=== PATIENT | female | born 1965 | race Caucasian/White ===

== ENCOUNTER 2021-02-25 18:56 | Observation (INO) | payer SELFPAY ==
[~2021-02-25] VITALS: Ht 149 cm; Wt 63.0 kg
[2021-02-25 19:16] LABS: BASOPHILS # (AUTO) 0.1 10^3/uL (0.0-0.1); BASOPHILS % (AUTO) 1 % (0-10); EOSINOPHILS # (AUTO) 0.2 10^3/uL (0.0-0.3); EOSINOPHILS % (AUTO) 1 % (0-10); HEMATOCRIT 43 % (35-52); HEMOGLOBIN 14.1 g/dL (11.5-16.0); LYMPHOCYTES # (AUTO) 1.8 10^3/uL (1.0-4.0); LYMPHOCYTES % (AUTO) 14 % (12-44); MEAN CORPUSCULAR HEMOGLOBIN 30 pg (25-34); MEAN CORPUSCULAR HGB CONC 33 g/dL (32-36); MEAN CORPUSCULAR VOLUME 89 fL (80-99); MEAN PLATELET VOLUME 8.6 fL (9.0-12.2); MONOCYTES # (AUTO) 0.6 10^3/uL (0.0-1.0); MONOCYTES % (AUTO) 4 % (0-12); NEUTROPHILS # (AUTO) 10.1 10^3/uL (1.8-7.8); NEUTROPHILS % (AUTO) 79 % (42-75); PLATELET COUNT 423 10^3/uL (130-400); WHITE BLOOD COUNT 12.7 10^3/uL (4.3-11.0)
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
[2021-02-25] MEDS ORDERED: LACTATED RINGERS 1,000 ML IV ONE (19:45)
[2021-02-25 19:55] LABS: TSH (THYROID ANALYZER) 0.89 UIU/ML (0.35-4.94)
[2021-02-25 19:58] LABS: ALANINE AMINOTRANSFERASE 17 U/L (0-55); ALBUMIN 4.4 GM/DL (3.2-4.5); ALKALINE PHOSPHATASE 84 U/L (40-136); BILIRUBIN,TOTAL 0.4 MG/DL (0.1-1.0); BUN/CREATININE RATIO 19; CARBON DIOXIDE 23 MMOL/L (21-32); CHLORIDE 105 MMOL/L (98-107); CREATININE SERUM 0.69 MG/DL (0.60-1.30); GFR ESTIMATED > 60; GLUCOSE 104 MG/DL (70-105); MAGNESIUM 1.9 MG/DL (1.6-2.4); POTASSIUM 3.9 MMOL/L (3.6-5.0); SODIUM 141 MMOL/L (135-145); TOTAL PROTEIN 7.9 GM/DL (6.4-8.2)
[2021-02-25 20:04] LABS: ACETAMINOPHEN < 10 UG/ML (10-30)
[2021-02-25 20:36] LABS: BILIRUBIN,URINE NEGATIVE (NEGATIVE); CLARITY,URINE CLEAR; COLOR,URINE YELLOW; GLUCOSE, URINE (UA) NEGATIVE (NEGATIVE); KETONES,URINE NEGATIVE (NEGATIVE); LEUKOCYTE ESTERASE ,URINE TRACE (NEGATIVE); NITRITE,URINE NEGATIVE (NEGATIVE); PROTEIN,URINE NEGATIVE (NEGATIVE)
[2021-02-25 20:51] LABS: BACTERIA,URINE TRACE /HPF; BENZODIAZEPINES SCREEN URINE NEGATIVE (NEGATIVE); COCAINE SCREEN URINE NEGATIVE (NEGATIVE); RBC,URINE 0-2 /HPF; SQUAMOUS EPITHELIAL CELL,UR RARE /HPF
[2021-02-25 20:52] LABS: AMPHETAMINE SCREEN, URINE POSITIVE (NEGATIVE); BARBITURATE SCREEN URINE NEGATIVE (NEGATIVE); CANNABINOID SCREEN, URINE NEGATIVE (NEGATIVE); METHADONE STAT NEGATIVE (NEGATIVE); METHAMPHETAMINE SCREEN URINE S POSITIVE (NEGATIVE); OPIATE SCREEN URINE NEGATIVE (NEGATIVE); OXYCODONE STAT NEGATIVE (NEGATIVE); PROPOXYPHENE STAT NEGATIVE (NEGATIVE); TRICYCLIC ANTIDEPRESSANTS SCRE NEGATIVE (NEGATIVE)
[2021-02-25 22:00] VITALS: BP 152/78
[2021-02-25] MEDS ORDERED: ACETAMINOPHEN 500 MG TAB (TYLENOL) PO PRN (22:15)
[2021-02-25] MEDS ORDERED: ONDANSETRON 4 MG/2 ML (SDV) Z0FRAN IVP PRN (22:15)
[2021-02-25] MEDS ORDERED: LORazepam INJ 2 MG/ML (ATIVAN) VIAL IVP PRN ×2 (22:15)
[2021-02-25] MEDS: D5 1/2 NS W/KCL 20 MEQ/L 1,000 ML IV SCH (22:26)
[2021-02-26] MEDS ORDERED: CITA20TA9 PO (01:01)
[2021-02-26] MEDS ORDERED: TRAM50TA3 PO (01:04)
[2021-02-26] MEDS: D5 1/2 NS W/KCL 20 MEQ/L 1,000 ML IV SCH (03:36)
[2021-02-26 03:49] LABS: BASOPHILS # (AUTO) 0.1 10^3/uL (0.0-0.1); BASOPHILS % (AUTO) 1 % (0-10); EOSINOPHILS # (AUTO) 0.3 10^3/uL (0.0-0.3); EOSINOPHILS % (AUTO) 2 % (0-10); HEMATOCRIT 46 % (35-52); HEMOGLOBIN 13.9 g/dL (11.5-16.0); LYMPHOCYTES # (AUTO) 3.5 10^3/uL (1.0-4.0); LYMPHOCYTES % (AUTO) 29 % (12-44); MEAN CORPUSCULAR HEMOGLOBIN 29 pg (25-34); MEAN CORPUSCULAR HGB CONC 30 g/dL (32-36); MEAN CORPUSCULAR VOLUME 95 fL (80-99); MEAN PLATELET VOLUME 8.8 fL (9.0-12.2); MONOCYTES # (AUTO) 1.2 10^3/uL (0.0-1.0); MONOCYTES % (AUTO) 10 % (0-12); NEUTROPHILS # (AUTO) 7.1 10^3/uL (1.8-7.8); NEUTROPHILS % (AUTO) 59 % (42-75); PLATELET COUNT 374 10^3/uL (130-400); WHITE BLOOD COUNT 12.1 10^3/uL (4.3-11.0)
[2021-02-26 04:00] LABS: ALANINE AMINOTRANSFERASE 17 U/L (0-55); ALKALINE PHOSPHATASE 74 U/L (40-136); BILIRUBIN,TOTAL 0.5 MG/DL (0.1-1.0); BUN/CREATININE RATIO 14; CALCIUM 9.2 MG/DL (8.5-10.1); CARBON DIOXIDE 24 MMOL/L (21-32); CHLORIDE 107 MMOL/L (98-107); CREATININE SERUM 0.66 MG/DL (0.60-1.30); GFR ESTIMATED > 60; GLUCOSE 106 MG/DL (70-105); MAGNESIUM 2.1 MG/DL (1.6-2.4); POTASSIUM 5.4 MMOL/L (3.6-5.0); SODIUM 139 MMOL/L (135-145); TOTAL PROTEIN 7.7 GM/DL (6.4-8.2)
--- NOTE | 2021-02-26 09:40 | History & Physical-Hospitalist ---
LORI MOSCOSO MED STUDENT 02/26/21 0940: History of Present Illness HPI/Chief Complaint Ms. Mullins is a 55 year old female seen today due to an intentional overdose of tramadol. She reports she has been having difficulties recently, she describes being unable to work do to pain in her R foot from bone spurs, losing her job and being unable to pay for her mortgage, and having recently broken up with her boyfriend. She has been homeless in the past and was afraid of being homeless again. Due to these difficulties she describes being emotionally distressed last night and taking 10 tramadol. She drove to her ex-boyfriend's house and was later brought from there to the ED. Her only complaints are of chronic back pain as well as chronic pain in her RLE, as well as tingling in her R foot that precedes her pain. Denies any light-headedness, syncope, weakness, focal numbness/weakness, CP, SOB, palpitations, nausea/vomiting, constipation/diarrhea, dysuria, urinary frequency or hesitancy. Source: patient Exam Limitations: no limitations Date Seen 02/26/21 Time Seen by a Provider: 09:00 Attending Physician Live De La Cruz MD PCP No,Local Physician Referring Physician Date of Admission Feb 25, 2021 at 20:20 Home Medications & Allergies Home Medications Reviewed patient Home Medication Reconciliation performed by pharmacy medication reconciliations gis technician and/or nursing. Patients Allergies have been reviewed. Allergies Allergies Coded Allergies amitriptyline (Unverified Allergy, Unknown, nausea, dizzy, 02/26/21) hydrocodone (Unverified Allergy, Unknown, nasuea, dizzy, 02/26/21) Patient Social History Tobacco type used: Cigarettes Smoking Status: Current Everyday Smoker (1ppd for 35 years) Substance use?: Yes Substance type: Amphetamines, Methamphetamine, Misuse of prescript meds Substance frequency: Once in a while (last used a couple days ago) Immunizations Up To Date Influenza Vaccine Up-to-Date: No; Not Current First/Initial COVID19 Vaccinat: n/a Current Status Do you have an Advance Directi: No Communicates: Verbally Primary Language: [place] Preferred Spoken Language: [place] Is interpretation needed?: No Implanted or Applied Medical D: None Family Medical History Family Hx: SOCIAL HISTORY: -ETOH--HX OF ABUSE, CLAIMS NO USE FOR 20 YEARS, PER PT ON 02/25/21 -DRUGS--HX OF IV METH USE, CLAIMS "NO USE FOR 7 YEARS", PT PT ON 02/25/21, BUT TESTED + FOR METH ON 02/25/21 -SMOKES 1 PPD PAST SURGICAL HISTORY: -HYSTERECTOMY, OVARIES INTACT - -PART OF CLAVICLE AND SCAPULA REMOVED Review of Systems Constitutional: No chills, No dizziness, No fever EENTM: No hearing loss, No blurred vision, No double vision, No vision loss Respiratory: No cough, No short of breath Cardiovascular: No chest pain, No edema, No palpitations Gastrointestinal: No abdominal pain, No constipation, No diarrhea, No nausea, No vomiting Genitourinary: No dysuria, No frequency, No hesitancy Musculoskeletal: back pain (chronic), joint pain (R foot/ankle, chronic), joint swelling (R leg/ankle, chronic) Psychiatric/Neurological: Depressed, Emotional Problems; Denies Headache, Denies Numbness; Tingling (R foot, chronic); Denies Weakness Physical Exam Physical Exam Vital Signs Vital Signs - First Documented 02/25/21 18:56 Temp 36.1 Pulse 110 Resp 20 B/P (MAP) 154/111 (125) Pulse Ox 97 O2 Delivery Room Air Capillary Refill : Less Than 3 Seconds Height, Weight, BMI Height: '" Weight: lbs. oz. kg; 28.37 BMI Method: General Appearance: No Apparent Distress, WD/WN, Chronically ill Eyes: Bilateral Eye PERRL, Bilateral Eye EOMI HEENT: PERRL/EOMI; No Pale Conjunctivae (L), No Pale Conjunctivae (R), No Scleral Icterus (L), No Scleral Icterus (R) Neck: Non Tender, Supple Respiratory: Lungs Clear, No Accessory Muscle Use, No Respiratory Distress, Other (distant) Cardiovascular: Regular Rate, Rhythm, No Edema, No Murmur, Normal Peripheral Pulses Gastrointestinal: Normal Bowel Sounds, No Organomegaly, Soft, Tenderness (RLQ) Extremity: Normal Capillary Refill, No Calf Tenderness, No Pedal Edema, Other (tenderness to palpation of swanson, chronic) Neurologic/Psychiatric: Alert, Oriented x3, Normal Mood/Affect (tearful) Skin: Normal Color, Warm/Dry Results Results/Procedures Labs Laboratory Tests 02/25/21 19:06 02/26/21 03:00 02/26/21 10:53 Patient resulted labs reviewed. Assessment/Plan Assessment and Plan Suicide Attempt w/ Tramadol * Poison control recommended CPK draw, CPK wnl at 54 * Consult mental health Hyperkalemia, resolved * Potasssium elevated at 5.6. She received fluids with potassium in the ED, recheck later in the morning shows 3.9. Musculoskeletal pain * Acetaminophen 1g po q6h available prn, she has not taken any yet Asthma/Bronchitis * Albuterol inhaler prn LIVE DE LA CRUZ MD 02/26/21 1141: Assessment/Plan Admission Diagnosis Suicidal ideation Admission Status: Observation Assessment and Plan patient admitted with suicidal ideation and intentional overdose on tramadol with about 10 pills. She reports multiple stressful events going on in her life with chronic pain, recent job loss and fear she is going to get evicted. She took the tramadol and then went to her ex boyfriend's home who called 911 for her. This morning she reports feeling very silly and is very apologetic regarding what she did. She denies any thoughts of self harm at this time. I informed her of the plan to have Mental Health come and screen patient to assess for best plan outside of the hospital. She is agreeable to talking to them. Supervisory-Addendum Brief Verification & Attestation Participated in pt care: history, MDM, physical Personally performed: exam, history, MDM, supervision of care Care discussed with: Medical Student Procedures: n/a Results interpretation: Verified all documentation Verification and Attestation of Medical Student E/M Service A medical student performed and documented this service in my presence. I reviewed and verified all information documented by the medical student and made modifications to such information, when appropriate. I personally performed the physical exam and medical decision making. Live De La Cruz, Feb 26, 2021,11:38 LORI MOSCOSO MED STUDENT Feb 26, 2021 09:40 LIVE DE LA CRUZ MD Feb 26, 2021 11:41
[2021-02-26 11:21] LABS: BUN/CREATININE RATIO 11; CALCIUM 9.9 MG/DL (8.5-10.1); CARBON DIOXIDE 28 MMOL/L (21-32); CHLORIDE 104 MMOL/L (98-107); CREATININE SERUM 0.65 MG/DL (0.60-1.30); GFR ESTIMATED > 60; GLUCOSE 86 MG/DL (70-105); POTASSIUM 3.9 MMOL/L (3.6-5.0); SODIUM 140 MMOL/L (135-145)
[2021-02-26] MEDS ORDERED: FLU QUADRIvalent (3YOA+) 60 mcg/0.5 ml 2020-21 (AFLURIA) IM ONE (18:10)
--- NOTE | 2021-03-10 10:51 | Physician Query-Final Dx ---
ELDER SPANGLER 03/10/21 1051: Final Diagnosis Give Final Diagnosis Please give Final Diagnosis LIVE HANSEN MD 03/10/21 1057: Final Diagnosis Give Final Diagnosis Suicide Attempt ELDER SPANGLER March 10, 2021 10:51 LIVE HANSEN MD March 10, 2021 10:57
== END 2021-02-26 18:17 | disposition home or self-care (01) ==
LOC: EDBD 18:58 → ER 18:58 → ICU 20:20 → UNDOADMOB 20:20 → ICU 22:12 → UNDODISOB 02-26 18:10
PROVIDERS: ADMIT Family Medicine; ATTEND Family Medicine
DX: I10 Essential (primary) hypertension (principal)
CPT/HCPCS: 51701; 80048; 80053 ×2; 80306; 81000; 82550; 83735 ×2; 84100; 84443; 85025 ×2; 87088; 93005 ×2; 96360; 99285; G0378; G0480 ×3; U0002; 36415; 80320; 80329; 87635